=== PATIENT | female | born 1960 | race Hispanic/Latino ===

== ENCOUNTER 2020-12-30 16:48 | Inpatient (IN) | payer OTHER, MEDICARE ==
[~2020-12-30] VITALS: Ht 149.9 cm; Wt 63.5 kg
[2020-12-30] MEDS ORDERED: DEXTROSE 50%-WATER 50 ML DISP.SYRIN IV PRN (18:00)
[2020-12-30] MEDS ORDERED: ACETAMINOPHEN 325 MG TAB PO PRN ×3 (18:00→18:45)
[2020-12-30] MEDS ORDERED: MAG/ALUM/SIMETH 30 ML UDCUP PO PRN (18:00)
[2020-12-30] MEDS ORDERED: GLUCAGON 1MG KIT 1 MG ML IM PRN (18:00)
[2020-12-30] MEDS ORDERED: 0.9%NACL 10ML VIAL IVP SCH (18:00)
[2020-12-30] MEDS ORDERED: NITROGLYCERIN 0.4 MG SL TAB SL PRN (18:00)
[2020-12-30 18:02] LABS: BASOPHILS % (AUTO) 0.5 % (0.0-5.0); EOSINOPHILS % (AUTO) 14.2 % (0.0-8.0); HEMATOCRIT 38.9 % (36-48); LYMPHOCYTES % (AUTO) 29.1 % (21.0-51.0); MEAN CORPUSCULAR HEMOGLOBIN 31.2 pg (27.0-33.0); MEAN CORPUSCULAR HGB CONC 32.6 g/dL (32.0-36.0); MEAN CORPUSCULAR VOLUME 95.6 fL (79-99); MONOCYTES % (AUTO) 6.5 % (3.0-13.0); NEUTROPHILS % (AUTO) 49.2 % (40.0-77.0); PLATELET COUNT (AUTO) 271 K/uL (130-400); RED BLOOD CELL COUNT(AUTO) 4.07 MIL/uL (4.00-5.50); RED CELL DISTRIBUTION WIDTH 13.7 % (11.0-15.5); WHITE BLOOD COUNT (AUTO) 6.3 K/uL (4.8-10.8)
[2020-12-30 18:16] LABS: CREATININE 1.1 mg/dL (0.5-1.5); POTASSIUM 3.5 mmol/L (3.5-5.1)
[2020-12-30 18:18] LABS: INR 0.94 (0.85-1.15); PROTHROMBIN TIME 10.3 SEC (9.6-11.6)
[2020-12-30 18:20] LABS: ALBUMIN 3.3 g/dL (3.5-5.0); BILIRUBIN,TOTAL 0.3 mg/dL (0.2-1.0); TOTAL PROTEIN, SERUM 7.4 g/dL (6.0-8.3)
[2020-12-30 18:28] LABS: CREATINE KINASE, TOTAL 44 U/L (21-232); MYOGLOBIN 21 ng/mL (10-92); TROPONIN I < 0.04 ng/mL (0.00-0.06)
[2020-12-30] MEDS ORDERED: ONDANSETRON 4MG INJ IV PRN (18:45)
[2020-12-30] MEDS ORDERED: GUAIFENESIN-DM 200/20 MG 10 ML PO PRN (18:45)
[2020-12-30] MEDS: INSULIN R PO SSI SQ SCH (21:00)
[2020-12-30] MEDS ORDERED: ATORVASTATIN 10 MG TABLET PO SCH (21:00)
[2020-12-30] MEDS ORDERED: GUAIFENESIN-DM 200/20 MG 10 ML ONE (22:15)
[2020-12-30 22:47] VITALS: BP 123/71
[2020-12-30] MEDS: METOPROLOL TARTRATE 25 MG TAB PO SCH (22:48)
[2020-12-30] MEDS: FAMOTIDINE 20MG TAB PO SCH (22:49)
[2020-12-30] MEDS: MEMANTINE HCL 5 MG TABLET PO SCH (22:49)
[2020-12-30] MEDS ORDERED: ATOR10 PO (23:09)
[2020-12-30] MEDS ORDERED: DOCU-280 PO (23:09)
[2020-12-30] MEDS ORDERED: LISI20TA24 PO (23:09)
[2020-12-30] MEDS ORDERED: BUSP10TA3 PO (23:09)
[2020-12-30] MEDS ORDERED: GABA-533 PO (23:09)
[2020-12-30] MEDS ORDERED: OMEP20CA12 PO (23:09)
[2020-12-30] MEDS ORDERED: MEMA10TA55 PO (23:09)
[2020-12-30] MEDS ORDERED: OMEG1CAP2 PO (23:09)
[2020-12-30] MEDS ORDERED: CETI10TA57 PO (23:09)
[2020-12-30 23:35] LABS: INR 0.94 (0.85-1.15); PROTHROMBIN TIME 10.3 SEC (9.6-11.6)
[2020-12-30 23:37] LABS: PARTIAL THROMBOPLASTIN TIME 25.3 SEC (26.3-35.5)
[2020-12-30 23:46] LABS: ALANINE AMINOTRANSFERASE 20 U/L (12-78); ALBUMIN 3.1 g/dL (3.5-5.0); ASPARTATE AMINOTRANSFERASE 19 U/L (10-37); BILIRUBIN,TOTAL 0.3 mg/dL (0.2-1.0); CARBON DIOXIDE 27 mmol/L (21-32); CHLORIDE 107 mmol/L (101-111); CREATINE KINASE, TOTAL 33 U/L (21-232); CREATININE 1.1 mg/dL (0.5-1.5); GLOMERULAR FILTR. RATE CALC 54 mL/min (>60); GLUCOSE,RANDOM 102 mg/dL (70-105); MYOGLOBIN 34 ng/mL (10-92); POTASSIUM 3.8 mmol/L (3.5-5.1); SODIUM SERUM 141 mmol/L (136-145); TOTAL PROTEIN, SERUM 7.1 g/dL (6.0-8.3); TROPONIN I < 0.04 ng/mL (0.00-0.06); UREA NITROGEN, BLOOD 10 mg/dL (7-18)
[2020-12-31] VITALS (14 sets, daily range): BP systolic 90–137; BP diastolic 59–81
[2020-12-31 04:45] LABS: CHOLESTEROL 148 mg/dL (<200); HDL CHOLESTEROL 37 mg/dL (35-85); LDL DIRECT 81 mg/dL (0-99); TRIGLYCERIDES 198 mg/dL (30-200)
[2020-12-31] MEDS: INSULIN R PO SSI SQ SCH ×4 (06:08→20:38)
[2020-12-31] MEDS ORDERED: NITROGLYCERIN 2 MG VIAL IV ONE (07:25)
[2020-12-31] MEDS ORDERED: BIVALIRUDIN 250 MG/VIAL IV ONE (07:25)
[2020-12-31] MEDS ORDERED: IOHEXOL 350 MG/ML 100ML INFUS..BTL IV ONE (07:25)
[2020-12-31] MEDS ORDERED: HEPARIN 10,000 UNIT/10ML (1,000 UNIT/ML) VIAL ONE (07:25)
[2020-12-31] MEDS ORDERED: FENTANYL CITRATE PF 50 MCG/1 ML 2ML VIAL ONE (07:26)
[2020-12-31] MEDS ORDERED: LIDOCAINE HCL 400MG/20ML VIAL ONE (07:26)
[2020-12-31] MEDS ORDERED: MIDAZOLAM HCL 1 MG/ML 2ML VIAL ONE (07:26)
[2020-12-31] MEDS: FAMOTIDINE 20MG TAB PO SCH ×2 (09:00→20:36)
[2020-12-31] MEDS: CETIRIZINE HCL 5 MG TABLET PO SCH (09:00)
[2020-12-31] MEDS: MEMANTINE HCL 5 MG TABLET PO SCH ×2 (09:00→20:36)
[2020-12-31] MEDS ORDERED: ASPIRIN 81MG CHEW TAB PO SCH (09:00)
[2020-12-31] MEDS: METOPROLOL TARTRATE 25 MG TAB PO SCH ×2 (09:00→20:36)
[2020-12-31] MEDS ORDERED: ASPIRIN 325MG EC TAB PO ONE (09:16)
[2020-12-31] MEDS ORDERED: PRASUGREL HCL 10 MG TABLET ONE (09:16)
[2020-12-31] MEDS ORDERED: ONDANSETRON 4MG INJ IVP PRN (10:00)
[2020-12-31] MEDS ORDERED: ATROPINE 1MG SYG IVP ONE (13:09)
[2020-12-31] MEDS ORDERED: ACETAMINOPHEN WITH CODEINE 1 TAB TAB PO PRN (13:30)
[2020-12-31] MEDS ORDERED: ATORVASTATIN 40 MG TABLET PO SCH (21:00)
[2021-01-01 04:07] VITALS: BP 137/70
[2021-01-01] MEDS: INSULIN R PO SSI SQ SCH (05:29)
[2021-01-01 06:19] LABS: BASOPHILS % (AUTO) 0.6 % (0.0-5.0); EOSINOPHILS % (AUTO) 13.6 % (0.0-8.0); HEMATOCRIT 39.2 % (36-48); LYMPHOCYTES % (AUTO) 21.7 % (21.0-51.0); MEAN CORPUSCULAR HEMOGLOBIN 30.7 pg (27.0-33.0); MEAN CORPUSCULAR HGB CONC 32.9 g/dL (32.0-36.0); MEAN CORPUSCULAR VOLUME 93.3 fL (79-99); MONOCYTES % (AUTO) 7.4 % (3.0-13.0); NEUTROPHILS % (AUTO) 56.1 % (40.0-77.0); PLATELET COUNT (AUTO) 245 K/uL (130-400); RED CELL DISTRIBUTION WIDTH 13.7 % (11.0-15.5); WHITE BLOOD COUNT (AUTO) 5.2 K/uL (4.8-10.8)
[2021-01-01 06:30] LABS: POTASSIUM 4.4 mmol/L (3.5-5.1)
[2021-01-01 06:36] LABS: CREATININE 0.8 mg/dL (0.5-1.5); MAGNESIUM 1.9 mg/dL (1.80-2.40)
[2021-01-01 08:33] VITALS: BP 140/72
[2021-01-01] MEDS ORDERED: ASPIRIN 325MG EC TAB PO SCH (09:00)
[2021-01-01] MEDS ORDERED: PRASUGREL HCL 10 MG TABLET PO SCH (09:00)
[2021-01-01] MEDS: METOPROLOL TARTRATE 25 MG TAB PO SCH (09:33)
[2021-01-01] MEDS: FAMOTIDINE 20MG TAB PO SCH (09:33)
[2021-01-01] MEDS: CETIRIZINE HCL 5 MG TABLET PO SCH (09:33)
[2021-01-01] MEDS: MEMANTINE HCL 5 MG TABLET PO SCH (09:34)
[2021-01-01] MEDS ORDERED: PRAS10TA6 PO ×2 (11:09→11:31)
[2021-01-01] MEDS ORDERED: ATOR40TA69 PO (11:09)
[2021-01-01] MEDS ORDERED: ASPI-891 PO ×2 (11:09→11:31)
[2021-01-01] MEDS ORDERED: METO25 PO (11:09)
[2021-01-01 11:49] VITALS: BP 144/78
[2021-01-01] MEDS ORDERED: AMLO2.5T4 PO (12:20)
[2021-01-01] MEDS ORDERED: AEC81 PO (13:56)
[2021-01-01 16:00] VITALS: BP 134/76
== END 2021-01-01 16:51 | disposition home or self-care (01) | DRG 247 ==
LOC: EDH 16:48 → EDHIP 16:49 → 4CH 21:57
PROVIDERS: ADMIT Internal Medicine; ATTEND Internal Medicine
PROC: B2151ZZ Fluoroscopy of Left Heart using Low Osmolar Contrast (ICD-10-PCS; principal; 2020-12-31)
PROC: 027034Z Dilation of Coronary Artery, One Artery with Drug-eluting Intraluminal Device, Percutaneous Approach (ICD-10-PCS; 2020-12-31)
PROC: B2111ZZ Fluoroscopy of Multiple Coronary Arteries using Low Osmolar Contrast (ICD-10-PCS; 2020-12-31)
PROC: 4A023N8 Measurement of Cardiac Sampling and Pressure, Bilateral, Percutaneous Approach (ICD-10-PCS; 2020-12-31)
PROC: B41F1ZZ Fluoroscopy of Right Lower Extremity Arteries using Low Osmolar Contrast (ICD-10-PCS; 2020-12-31)
DX: I25.110 Atherosclerotic heart disease of native coronary artery with unstable angina pectoris (principal); Z20.822 Contact with and (suspected) exposure to COVID-19; Z88.8 Allergy status to other drugs, medicaments and biological substances; E78.5 Hyperlipidemia, unspecified; I10 Essential (primary) hypertension; R29.6 Repeated falls; F03.90 Unspecified dementia, unspecified severity, without behavioral disturbance, psychotic disturbance, mood disturbance, and anxiety; J30.9 Allergic rhinitis, unspecified; K57.90 Diverticulosis of intestine, part unspecified, without perforation or abscess without bleeding; M51.9 Unspecified thoracic, thoracolumbar and lumbosacral intervertebral disc disorder; Z83.3 Family history of diabetes mellitus; Z82.49 Family history of ischemic heart disease and other diseases of the circulatory system; Z98.891 History of uterine scar from previous surgery; Z90.49 Acquired absence of other specified parts of digestive tract; Z90.710 Acquired absence of both cervix and uterus; R05 Cough; F41.1 Generalized anxiety disorder; T78.3XXA Angioneurotic edema, initial encounter; Y92.89 Other specified places as the place of occurrence of the external cause
CPT/HCPCS: 36415; 70450; 71045; 80048; 80053; 80061; 82550; 82948; 83735; 83874; 84145; 84484; 85025; 85610; 85651; 85730; 86140; 86160; 87426; 93306; 93356; 93458; 93460; 99156; 99157; C1725; C1769; C1887; C1893; C1894; C9600; G0378; J0461; J0583; J1644; J2250; J2405; J3010; J3490; Q9967; U0003

== ENCOUNTER → 2023-11-27 | Outpatient (CLI) | payer OTHER, MEDICARE ==
[~2023-11-27] MED LIST: AEC81 PO; ATOR40TA69 PO; BUSP10TA3 PO; CETI10TA57 PO; DOCU-280 PO; GABA-534 PO; MEMA10TA55 PO; METO25 PO; OMEG1CAP2 PO; OMEP20CA12 PO; PRAS10TA6 PO
[2023-11-27] MEDS: REGADENOSON 0.4 MG/5 ML PF SYG IVP SCH (13:38)
== END | disposition home or self-care (01) ==
LOC: RAH 09:02
PROVIDERS: ATTEND Internal Medicine Cardiovascular Disease
DX: I25.10 Atherosclerotic heart disease of native coronary artery without angina pectoris (principal)
CPT/HCPCS: 78452; 96374; 93017; J2785; A9500 ×2

== ENCOUNTER → 2024-12-09 | Outpatient (CLI) | payer OTHER, MEDICARE ==
[~2024-12-09] MED LIST changes: +MEMA10TA21 PO; -MEMA10TA55 PO
== END | disposition home or self-care (01) ==
LOC: SHCH 10:55
PROVIDERS: ATTEND Internal Medicine Cardiovascular Disease
DX: I08.3 Combined rheumatic disorders of mitral, aortic and tricuspid valves (principal)
CPT/HCPCS: 93306

== ENCOUNTER 2025-02-05 06:35 | Day surgery (SDC) | payer OTHER, MEDICAID ==
[2025-02-03 12:59] LABS: BASOPHILS # (AUTO) 0.03 K/uL (0.00-0.20); BASOPHILS % (AUTO) 0.6 % (0.0-5.0); EOSINOPHILS # (AUTO) 0.33 K/uL (0.00-0.70); EOSINOPHILS % (AUTO) 6.3 % (0.0-8.0); HEMATOCRIT 41.7 % (36-48); IMMATURE GRANULOCYTE ABSOLUTE 0.01 K/uL (0-1); LYMPHOCYTES # (AUTO) 1.8 K/uL (1.0-4.8); LYMPHOCYTES % (AUTO) 34.9 % (21.0-51.0); MEAN CORPUSCULAR HEMOGLOBIN 30.9 pg (27.0-33.0); MEAN CORPUSCULAR HGB CONC 33.1 g/dL (32.0-36.0); MEAN CORPUSCULAR VOLUME 93.5 fL (79-99); MONOCYTES # (AUTO) 0.5 K/uL (0.1-1.0); MONOCYTES % (AUTO) 9.5 % (3.0-13.0); NEUTROPHILS # (AUTO) 2.5 K/uL (1.8-7.7); NEUTROPHILS % (AUTO) 48.5 % (40.0-77.0); PLATELET COUNT (AUTO) 329 K/uL (130-400); RED BLOOD CELL COUNT(AUTO) 4.46 MIL/uL (4.00-5.50); RED CELL DISTRIBUTION WIDTH 14.2 % (11.0-15.5); WHITE BLOOD COUNT (AUTO) 5.2 K/uL (4.8-10.8)
[2025-02-03 13:04] LABS: APPEARANCE,URINE CLEAR (CLEAR); BILIRUBIN,URINE NEGATIVE (NEGATIVE); COLOR,URINE LIGHT-YELLOW (YELLOW); GLUCOSE, URINE (UA) NEGATIVE (NEGATIVE); KETONES,URINE NEGATIVE (NEGATIVE); LEUKOCYTE ESTERASE ,URINE 250 Leu/uL (NEGATIVE); NITRATE,URINE NEGATIVE (NEGATIVE); OCCULT BLOOD,URINE NEGATIVE (NEGATIVE); PH,URINE 5.5 (5.0-8.0); PROTEIN,URINE NEGATIVE (NEGATIVE); UROBILINOGEN,URINE 0.2 mg/dL (0.2-1.0)
[2025-02-03 13:09] LABS: ADD UA MICROSCOPIC YES; CREATININE 0.7 mg/dL (0.5-1.0); POTASSIUM 4.5 mmol/L (3.5-5.1)
[2025-02-03 13:10] LABS: BACTERIA,URINE RARE /HPF (None Seen); INR <= 0.93 (0.85-1.15); MUCUS,URINE RARE LPF (None Seen); PROTHROMBIN TIME 9.9 SEC (9.6-11.6); RBC,URINE 0-1 /HPF (0-1); SQUAMOUS EPITHELIAL CELL,UR RARE /HPF (0-2)
[2025-02-03 13:11] LABS: PARTIAL THROMBOPLASTIN TIME 27.2 SEC (26.3-35.5)
[2025-02-03 13:30] LABS: B-TYPE NATRIURETIC PEPTIDE 23 pg/mL (0-100)
--- NOTE | 2025-02-03 13:59 | EKG ---
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
[2025-02-03 16:15] VITALS: BP 143/84; PULSE 60; RESP 16; TEMP 97.7
--- NOTE | 2025-02-03 16:33 | HMCIMG ---
CHEST 1VW HISTORY: Preop COMPARISON: 12/30/2020 FINDINGS: A frontal projection of the chest was obtained. No acute pulmonary infiltrates is seen. The heart is normal in size. No evidence of aortic calcification is seen. IMPRESSION: 1. No acute pulmonary infiltrate is seen.
[~2025-02-05] VITALS: Ht 144.8 cm; Wt 59.3 kg
[2025-02-05] VITALS (12 sets, daily range): BP systolic 127–152; BP diastolic 54–81; PULSE 50–63; RESP 12–18; TEMP 97.7–98.2
[~2025-02-05 06:35] MED LIST changes: -AEC81 PO; -ATOR40TA69 PO; -BUSP10TA3 PO; +CLOP75TA32 PO; -DOCU-280 PO; +FAMO20TA8 PO; -GABA-534 PO; +LOSA50TA64 PO; -MEMA10TA21 PO; -METO25 PO; +MONT-39 PO; -OMEG1CAP2 PO; -OMEP20CA12 PO; +PANT40TA54 PO; +PHARMACY COMMUNICATION MISC SCH; -PRAS10TA6 PO; +amlodipine PO; +vitamin d2 PO
[2025-02-05] MEDS: 0.9%NACL 1000ML 1,000 ML IV SCH (07:26)
[2025-02-05] MEDS ORDERED: IOHEXOL 350 MG/ML 100ML INFUS..BTL IV ONE (09:02)
[2025-02-05] MEDS ORDERED: NITROGLYCERIN 50MG VIAL ONE (09:02)
[2025-02-05] MEDS ORDERED: LIDOCAINE HCL 400MG/20ML VIAL ONE (09:02)
[2025-02-05] MEDS ORDERED: HEParin 10,000 UNIT/10ML (1,000 UNIT/ML) VIAL ONE (09:02)
[2025-02-05] MEDS ORDERED: HEParin-NS 1,000 UNIT/500 ML 1,000 ML IV ONE (09:02)
[2025-02-05] MEDS ORDERED: FENTanyl CITRate PF 50 MCG/1 ML 2ML VIAL ONE ×2 (09:15→11:39)
[2025-02-05] MEDS ORDERED: MIDAZOLAM HCL 1 MG/ML 2ML VIAL ONE (09:15)
[2025-02-05] MEDS ORDERED: HEParin-NS 1,000 UNIT/500 ML 500 ML IV ONE ×2 (09:33→10:57)
[2025-02-05] MEDS ORDERED: IOHEXOL-350 50ML VIAL IV ONE ×2 (09:38→11:13)
[2025-02-05] MEDS ORDERED: ATROPINE 1MG SYG IVP ONE (09:38)
[2025-02-05] MEDS ORDERED: ASPIRIN 325MG EC TAB PO ONE (10:48)
[2025-02-05] MEDS ORDERED: BIVALIRUDIN 250 MG/VIAL IV ONE (10:48)
[2025-02-05] MEDS ORDERED: cloPIDOgrel 300MG TAB ONE (10:48)
--- NOTE | 2025-02-05 12:24 | PRN ---
DATE OF PROCEDURE: 02/05/2025 PROCEDURE PERFORMED: RIGHT AND LEFT HEART CATHETERIZATION, LEFT AND RIGHT SELECTIVE CORONARY ANGIOGRAM, LEFT VENTRICULOGRAM, INTRAVASCULAR ULTRASOUND ASSESSMENT OF POSTEROLATERAL VENTRICULAR BRANCH 90% STENOSIS, IFR ASSESSMENT OF MID TO DISTAL LAD 50% STENOSIS, PTCA AND CONRADO TO THE PLV BRANCH WITH A 2.5 X 12 MM BROCK FRONTIER CONRADO, RIGHT COMMON FEMORAL ANGIOGRAM, PERCLOSE SUTURE CLOSURE OF THE RIGHT COMMON FEMORAL ARTERY, WITH CONSCIOUS SEDATION SACK DEPARTMENT SUPERVISOR: MARK CADET MD, [facility] INDICATION: Severe symptomatic aortic stenosis with 1/2 block dyspnea on exertion times 4-6 months and 2D echo evidence 12/09/2024 of an aortic valve area of 0.8 cm2, dimensionless index of 0.24, peak aortic valve gradient of 37 mm of mercury, and mean aortic valve gradient of 22 mm of mercury with LVEF of 55-60%. Status post remote PTCA and CONRADO to the mid LAD with a 2.75 x 16 mm Promus elite CONRADO on 01/10/2021 PROCEDURE NOTE: After informed consent was obtained the patient was prepped and draped in the usual sterile fashion. A 6 Ecuadorean 45 cm arterial sheath was inserted in the right femoral artery using a micropuncture technique with ultrasound guidance with a front wall, first pass puncture. This was performed after fluoroscopic identification of bony landmarks to facilitate a more accurate puncture of the right common femoral artery. The arterial sheath was aspirated and flushed. A seven Ecuadorean venous sheath was placed in the right common femoral vein with ultrasound guidance and micropuncture technique without difficulty. A seven Ecuadorean S tip Bevington-Julia catheter was advanced using balloon floatation to the right heart with saturation measurements in the PA and descending aorta for Ariel cardiac output determinations. The Bevington-Julia catheter obtain pressure measurements in the RA, RV, PA, and wedge positions. This was also used for thermodilution cardiac outputs. A 5 Ecuadorean pigtail catheter was then advanced over a J-tipped guidewire to the ascending aorta and was prolapsed into the left ventricle. The catheter was aspirated and flushed and pressure measurements were obtained in the descending thoracic aorta and ascending aorta with identical pressure waveforms and measurements confirmed. A floppy straight wire was used with a pigtail catheter to traverse the aortic valve and simultaneous pressure measurements and LV and AO were obtained. Thermodilution cardiac outputs and valve area calculations were performed. A left ventriculogram was then performed in a 30 ZIMMER projection. A pullback procedure was then performed, and this catheter was removed over a J-tipped guidewire. A 6F JL-4 was then advanced to the ascending aorta over a J-tipped guidewire, was aspirated and flushed, and was used for selective left coronary angiograms in multiple obliquities. A JR-4 was advanced in a similar fashion to the ascending aorta over a J-tipped guidewire and was used for selective right coronary angiograms in multiple obliquities with findings as outlined below. PERCUTANEOUS CORONARY INTERVENTION: After IVUS assessment of lesion characteristics and vessel diameter a choice PT provided good support with a six Ecuadorean JR4 guiding catheter for intervention to the posterolateral ventricular branch. A 2.5 x 12 mm brock [place] CONRADO was deployed at 12 and then 14 atmospheres to a 0% residual. There was no edge dissection or complication noted. The IFR wire was used to assess a 50% mid to distal LAD stenosis with results of 0.95, 0.96, and 0.95 respectively, without drift. A right common femoral angiogram was performed to assess suitability for Perclose suture closure and the Perclose device was deployed in standard fashion. Perclose suture closure was successful without bleeding or hematoma. The patient tolerated the procedure well and was returned to the holding area in stable condition. FINDINGS: RIGHT HEART CATHETERIZATION: RA pressure was 10 mm of mercury on the A-wave, 9 mm of mercury on the V-wave, and 7 mm of mercury mean RV pressure was 36/8 mm of mercury PA pressure was 36/15 mm of mercury with a mean PA pressure of 23 mm of mercury Pulmonary capillary wedge pressure was 16 mm of mercury on the A-wave, 11 mm of mercury on the V-wave, and 11 mm of mercury mean. Cardiac output with Ariel was 2.86 L/min with a cardiac index of 1.94 L/min per meter squared Cardiac output with thermodilution was 3.13 L/min with a cardiac index of 2.11 L/min per meter squared LEFT HEART HEMODYNAMICS: Aortic valve peak to peak gradient was 14 mm of mercury Aortic valve mean gradient was 18 mm of mercury Aortic valve area with Ariel cardiac outputs was 0.8 cm2 Aortic valve area with thermodilution cardiac output was 0.7 cm2 LEFT VENTRICULOGRAM: The LVEF was 65% with normal wall motion and no angiographic MR. CORONARY ANGIOGRAM: LEFT MAIN: The left main coronary was normal. LEFT ANTERIOR DESCENDING: There was a widely patent 2.75 x 16 mm Promus elite CONRADO from 01/10/2021, a 20% mid LAD stenosis, and a 50% mid to distal LAD stenosis with IFR measurements of 0.95, 0.96, and 0.95 without drift. There was an 80% small diagonal one stenosis. LEFT CIRCUMFLEX: The left circumflex was nondominant and normal and terminated as a large bifurcating OM1 branch which was also normal. RAMUS INTERMEDIATE BRANCH: There was no ramus intermediate branch. RIGHT CORONARY ARTERY: The right coronary artery was dominant and had a 40% tubular proximal stenosis and a 90% stenosis in the posterolateral branch ostia which was a moderate size vessel. Intravascular ultrasound demonstrated a fibrocalcific stenosis with a 30 degree arc of calcification only. IMPRESSION: Severe low-flow low gradient aortic stenosis with aortic valve area of 0.8 cm2 by 2D echo 12/09/2024, 0.7 cm2 using thermodilution and simultaneous pressure measurements in the slab inspector, and 0.8 cm2 using Ariel cardiac output again with simultaneous pressure measurements in the slab inspector. Normal LV systolic function with LVEF of 65% No mitral stenosis or mitral regurgitation. 90% PLV branch stenosis of the RCA, status post successful PTCA and stenting with a 2.5 x 12 mm Medtronic brock [place] CONRADO Widely patent stent in the mid LAD from 01/10/2021 and 50% mid to distal LAD stenosis with no hemodynamic significance by IFR. RECOMMENDATION: SAVR versus TAVR assessment, but patient's young age of 64 years favor surgical aortic valve replacement generally. COMPLICATIONS OF PROCEDURE: None, the patient tolerated the procedure well. HEMOSTASIS: Perclose suture closure successful without bleeding or hematoma. ESTIMATED BLOOD LOSS: Less than 10 mL. CONTRAST TOTAL: 205 mL. MARK CADET MD February 05, 2025 12:24
[2025-02-05] MEDS ORDERED: 0.9%NACL 1000ML 1,000 ML IV SCH (12:30)
[2025-02-05] MEDS: acetaMINOPHEN 500 MG TABLET PO PRN (13:40)
[2025-02-05] MEDS: ondanSETRON 4MG INJ IVP ONE (13:42)
== END 2025-02-05 17:50 | disposition home or self-care (01) ==
LOC: DAH 06:35 → EDSTATUS 12:00 → DAH 17:50
PROVIDERS: ATTEND Internal Medicine Cardiovascular Disease
DX: I35.0 Nonrheumatic aortic (valve) stenosis (principal); I25.10 Atherosclerotic heart disease of native coronary artery without angina pectoris; I11.0 Hypertensive heart disease with heart failure; I50.32 Chronic diastolic (congestive) heart failure; E78.5 Hyperlipidemia, unspecified; R06.09 Other forms of dyspnea; Z79.899 Other long term (current) drug therapy; Z95.5 Presence of coronary angioplasty implant and graft; Z87.898 Personal history of other specified conditions; Z90.49 Acquired absence of other specified parts of digestive tract; Z98.890 Other specified postprocedural states; Z90.710 Acquired absence of both cervix and uterus; Z98.891 History of uterine scar from previous surgery; Z82.49 Family history of ischemic heart disease and other diseases of the circulatory system; Z88.8 Allergy status to other drugs, medicaments and biological substances
CPT/HCPCS: 80048; 83880; 85025; 85610; 85730; 87086; 81001; 36415; 71045; 93005; 93460; 92978; 93571; C9600; Q9965 ×2; C1769 ×4; C1887 ×2; C1894 ×2; C1874; C1760; C1893; C1753; J3010 ×2; J3490 ×2; J7030; J2250; J2405; J1644 ×3; J0583; Q9967 ×2; A4215; A4222; A4221; A4663; A4216; A4606; A4223 ×3; 96360; 96361; 99156; 99157; J0461